=== PATIENT | male | born 1960 | race Caucasian/White ===

== ENCOUNTER 2018-03-29 07:35 | Emergency (ER) | payer MEDICAID ==
[~2018-03-29] VITALS: Ht 172.7 cm; Wt 112.3 kg
[2018-03-29] MEDS ORDERED: amox tr/potassium clavulanate 875/125mg TAB PO ONE (08:00)
[2018-03-29] MEDS ORDERED: ceFAZolin 1gm IM kit IM ONE (08:00)
[2018-03-29] MEDS ORDERED: TETanus/Pertussis (Acell)/Diphther VAC/PF (Tdap-Adult) 0.5ml syringe IM ONE (08:20)
[2018-03-29] MEDS ORDERED: AMOX-422 PO (08:21)
[2018-03-29] MEDS ORDERED: HYDR-3965 PO (08:41)
[2018-03-29 08:58] VITALS: BP 143/61
== END 2018-03-29 08:59 | disposition home or self-care (01) ==
LOC: ER 07:36
DX: S91.352A Open bite, left foot, initial encounter (principal); S31.154A Open bite of abdominal wall, left lower quadrant without penetration into peritoneal cavity, initial encounter; W54.0XXA Bitten by dog, initial encounter; Y93.89 Activity, other specified; Y92.89 Other specified places as the place of occurrence of the external cause; Y99.9 Unspecified external cause status
CPT/HCPCS: 73650; 96372; 99284; J0690